=== PATIENT | female | born 1980 | race Caucasian/White ===

== ENCOUNTER 2017-09-15 10:12 | Emergency (ER) | payer OTHER ==
[2017-09-15 10:20] VITALS: BP 155/91; BMI 29.2
--- NOTE | 2017-09-15 10:42 | DR.GENAD ---
HPI - PCP Primary Care Physician: NFD - Complaint/Symptoms Chief Complaint Doctors Comments: Patient presents with complaint of a headache (migraine) onset this AM at 0600. Throbbing, 03/04, sharp. Chief Complaint:: PT STATES "I'VE GOT A REALLY BAD HEADACHE" Self Treatment fo Chief Complaint: "I HAVE MIGRAINES, BUT I HAVE NEVER FELT LIKE THIS BEFORE. I CAN HEAR POUNDING IN MY RIGHT EAR" - Source History Provided: Patient - Mode of Arrival Mode of Arrival: Ambulatory - Timing Onset of Chief Complaint: 09/15/17 PMH - PMH Past Medical History: Yes Past Medical History: Dyslipidemia, Headaches Past Surgical History: Yes Surgical History: Cholecystectomy, Hysterectomy Past Surgical History Comment: BREAST AUGMENTATION. SINUS SURGERY - Family History History of Family Medical Conditions: Yes Family Medical History: Hypertension - Social History Does patient currently use any type of tobacco product: Yes Have you used tobacco products in the last 12 months: Yes Type of Tobacco Use: Cigarettes Does any household member use tobacco: No Alcohol Use: None Do you use any recreational Drugs:: No Lives With: Spouse Lives Where: Home - infectious screening In the last 2 months have you had wt loss of >10#?: NO Have you traveled outside the country in the last 6 months?: No Isolation: Standard ROS - Review of Systems Constitutional: No Symptoms Reported Eyes: No Symptoms Reported ENTM: Ear Pain (right) Respiratoy: No Symptoms Reported Cardiovascular: No Symptoms Reported Gastrointestinal/Abdominal: No Symptoms Reported Genitourinary: No Symptoms Reported Neurological: Headache Musculoskeletal: No Symptoms Reported Integumentary: No Symptoms Reported Hematologic/Lymphatic: No Symptoms Reported Endocrine: No Symptoms Reported Psychiatric: No Symptoms Reported All Other Systems: Reviewed and Negative PE - Vital Signs Vitals: Temperature 97.5 F Pulse Rate 92 Respiratory Rate 20 Blood Pressure 155/91 O2 Sat by Pulse Oximetry 98 - General Limitations: No Limitations General Appearance: Alert, In No Apparent Distress - Head Head Exam: Normal Inspection, Atraumatic - Eyes Eye exam: Normal Appearance, PERRL, EOMI - ENT ENT Exam: Normal Exam External Ear Exam: Normal External Inspection TM/Canal Exam: Right Erythema (immobile) Nose Exam: Normal Nose Exam Mouth Exam: Normal Inspection Throat Exam: Normal Inspection - Neck Neck Exam: Normal Inspection, Full ROM - Chest Chest Inspection: Normal Inspection - Respiratory Respiratory Exam: Normal Lung Sounds Bilat Respiratory Exam: Bilateral Clear to Auscultation - Cardiovascular Cardiovascular Exam: Regular Rate, Normal Rhythm - Abdominal Exam Abdominal Exam: Normal Inspection, Normal Bowel Sounds Abdominal Tenderness: negative: RUQ, RLQ, LUQ, LLQ, Epigastrium, Suprapubic, Diffuse, Mild, Moderate, Severe, Other - Extremities Extremities Exam: Normal Inspection, Full ROM - Back Back Exam: Normal Inspection, Full ROM - Neurologic Neurological Exam: Alert, Oriented X3, CN II-XII Intact - Skin Skin Exam: Warm, Dry, Intact Course - Reevaluation 1st: Improved ROR - Labs Reviewed Result Diagrams: 09/15/17 10:55 09/15/17 10:55 Laboratory: WBC 7.2 X10^3/uL (3.6-10.0) 09/15/17 10:55 RBC 5.01 X10^6/uL (3.5-5.4) 09/15/17 10:55 Hgb 14.2 g/dL (12.0-16.0) 09/15/17 10:55 Hct 40.9 % (36.0-47.0) 09/15/17 10:55 MCV 81.7 fL (80.0-100.0) 09/15/17 10:55 MCH 28.4 pg (27.0-34.0) 09/15/17 10:55 MCHC 34.8 g/dL (33.0-35.0) 09/15/17 10:55 RDW 13.8 % (11.6-16.5) 09/15/17 10:55 Plt Count 269 X10^3/uL (150.0-450.0) 09/15/17 10:55 MPV 8.1 fL (7.4-11.0) 09/15/17 10:55 Neut % (Auto) 59.1 % (42.0-75.0) 09/15/17 10:55 Lymph % (Auto) 25.4 % (21.0-51.0) 09/15/17 10:55 [place] % (Auto) 9.4 % (0.0-13.0) 09/15/17 10:55 Eos % (Auto) 5.0 % (0.9-2.9) H 09/15/17 10:55 Baso % (Auto) 1.1 % (0.2-1.0) H 09/15/17 10:55 Neut # (Auto) 4.3 x10^3/uL (2.2-4.8) 09/15/17 10:55 Lymph # (Auto) 1.8 X10^3/uL (1.3-2.9) 09/15/17 10:55 [place] # (Auto) 0.7 x10^3/uL (0.3-0.8) 09/15/17 10:55 Eos # (Auto) 0.4 x10^3/uL (0.0-0.2) H 09/15/17 10:55 Baso # (Auto) 0.1 X10^3/uL (0.0-0.1) 09/15/17 10:55 Absolute Nucleated RBC 0.1 /100WBC 09/15/17 10:55 Sodium 141 mmol/L (136-145) 09/15/17 10:55 Corrected Sodium TNP 09/15/17 10:55 Potassium 3.7 mmol/L (3.5-5.1) 09/15/17 10:55 Chloride 105 mmol/L (98-107) 09/15/17 10:55 Carbon Dioxide 27.5 mmol/L (21-32) 09/15/17 10:55 BUN 9 mg/dL (7-18) 09/15/17 10:55 Creatinine 0.63 mg/dL (0.55-1.02) 09/15/17 10:55 Est GFR (MDRD) Af Amer > 60 (>60) 09/15/17 10:55 Est GFR (MDRD) Non-Af > 60 (>60) 09/15/17 10:55 Glucose 86 mg/dL (65-99) 09/15/17 10:55 Calcium 8.8 mg/dL (8.5-10.1) 09/15/17 10:55 - Diagnosis Discharge Problem: Migraine headache Qualifiers: Migraine type: unspecified Status migrainosus presence: without status migrainosus Intractability: not intractable Qualified Code(s): G43.909 - Migraine, unspecified, not intractable, without status migrainosus Right otitis media Qualifiers: Otitis media type: suppurative Chronicity: acute Recurrence: not specified as recurrent Spontaneous tympanic membrane rupture: without spontaneous rupture Qualified Code(s): H66.001 - Acute suppurative otitis media without spontaneous rupture of ear drum, right ear - Discharge Plan Condition: Stable - Follow ups/Referrals Follow ups/Referrals: NFD,None [Primary Care Provider] - 3 days - Instructions
[2017-09-15] MEDS ORDERED: COMPAZINE INJ IVP ONE (10:43)
[2017-09-15] MEDS ORDERED: BENADRYL INJ 50 MG VIAL IVP ONE (10:43)
[2017-09-15] MEDS ORDERED: ROCEPHIN VIAL 1 GM 1 GM in NS 100 ML IV + SPIKE MINIBAG* 100 ML IV ONE (10:44)
[2017-09-15] MEDS ORDERED: COMPAZINE INJ ONE (10:46)
[2017-09-15] MEDS ORDERED: BENADRYL INJ 50 MG VIAL ONE (10:46)
[2017-09-15] MEDS ORDERED: ROCEPHIN VIAL 1 GM ONE (11:02)
[2017-09-15] MEDS ORDERED: NS 100 ML IV + SPIKE MINIBAG* 100 ML IV ONE (11:02)
[2017-09-15 11:06] LABS: BASOPHILS # (AUTO) 0.1 X10^3/uL (0.0-0.1); BASOPHILS % (AUTO) 1.1 % (0.2-1.0); EOSINOPHILS # (AUTO) 0.4 x10^3/uL (0.0-0.2); HEMATOCRIT 40.9 % (36.0-47.0); HEMOGLOBIN 14.2 g/dL (12.0-16.0); LYMPHOCYTES # (AUTO) 1.8 X10^3/uL (1.3-2.9); LYMPHOCYTES % (AUTO) 25.4 % (21.0-51.0); MEAN CORPUSCULAR HEMOGLOBIN 28.4 pg (27.0-34.0); MEAN CORPUSCULAR HGB CONC 34.8 g/dL (33.0-35.0); MEAN CORPUSCULAR VOLUME 81.7 fL (80.0-100.0); MEAN PLATELET VOLUME 8.1 fL (7.4-11.0); MONOCYTES # (AUTO) 0.7 x10^3/uL (0.3-0.8); MONOCYTES % (AUTO) 9.4 % (0.0-13.0); NEUTROPHILS # (AUTO) 4.3 x10^3/uL (2.2-4.8); NEUTROPHILS % (AUTO) 59.1 % (42.0-75.0); PLATELET COUNT 269 X10^3/uL (150.0-450.0); RED BLOOD COUNT 5.01 X10^6/uL (3.5-5.4); RED CELL DISTRIBUTION WIDTH 13.8 % (11.6-16.5); WHITE BLOOD COUNT 7.2 X10^3/uL (3.6-10.0)
[2017-09-15 11:11] LABS: BLOOD UREA NITROGEN 9 mg/dL (7-18); CALCIUM 8.8 mg/dL (8.5-10.1); CARBON DIOXIDE 27.5 mmol/L (21-32); CHLORIDE 105 mmol/L (98-107); CREATININE 0.63 mg/dL (0.55-1.02); SODIUM 141 mmol/L (136-145); eGFR BLACK RACES > 60 (>60); eGFR NON BLACK RACES > 60 (>60)
== END 2017-09-15 11:43 | disposition home or self-care (01) ==
LOC: ER 10:27
DX: G43.909 Migraine, unspecified, not intractable, without status migrainosus (principal); H66.001 Acute suppurative otitis media without spontaneous rupture of ear drum, right ear
CPT/HCPCS: 36415; 80048; 85025; 96365; 96374; 96375; 99283; A4222; J0696; J0780; J1200